=== PATIENT | male | born 1975 | race Caucasian/White ===

== ENCOUNTER 2018-01-25 13:49 | Inpatient (IN) | payer OTHER ==
[~2018-01-25] VITALS: Ht 175.3 cm; Wt 96.6 kg
[2018-01-25 13:55] VITALS: BP 150/102
[2018-01-25 14:29] LABS: HEMATOCRIT 44.1 % (42.0-52.0); HEMOGLOBIN 14.7 gm/dL (14.0-18.0); MCH 27.6 pg (26.0-34.0); MCHC 33.5 g/dL (28.0-37.0); MCV 82.5 fL (80.0-100.0); MPV 7.3 fl. (7.2-11.1); NUCLEATED RBCS 0 /100WBC; PLATELET COUNT* 357 thou/uL (150-400); RBC 5.34 mil/uL (4.50-6.00); RDW-CV 13.6 % (10.5-14.5); WBC 6.2 thou/uL (4.0-11.0)
[2018-01-25 14:39] LABS: CREATININE 1.2 mg/dL (0.6-1.3); POTASSIUM 4.4 mmol/L (3.5-5.1)
[2018-01-25 14:43] LABS: ALBUMIN 3.8 g/dL (3.4-5.0); TOTAL BILIRUBIN 2.1 mg/dL (<0.1-1.0)
[2018-01-25 14:51] LABS: ABSOLUTE LYMPHOCYTES 1.4 thou/uL (0.8-5.3); ABSOLUTE MONOCYTES 1.2 thou/uL (0.0-1.2); ABSOLUTE NEUTROPHILS 3.5 thou/uL (1.6-8.1); PLATELET ESTIMATE ADEQUATE
[2018-01-25 15:03] LABS: URINE BLOOD NEGATIVE (Negative); URINE CLARITY CLEAR; URINE COLOR YELLOW; URINE GLUCOSE-RANDOM NEGATIVE (Negative); URINE KETONES 1+ (Negative); URINE LEUKOCYTES NEGATIVE (Negative); URINE NITRITE NEGATIVE (Negative); URINE PROTEIN NEGATIVE (Negative); URINE SPECIFIC GRAVITY >= 1.030 (1.005-1.030); URINE UROBILINOGEN 0.2 E.U./dl (0.2-1.0)
[2018-01-25 15:08] LABS: ICTOTEST (BILI CONFIRMATORY) Negative (Negative); URINE BILIRUBIN 1+ (Negative)
[2018-01-25 21:09] VITALS: BP 130/80
[2018-01-25 21:14] VITALS: BP 138/78
[2018-01-26 03:59] LABS: ABSOLUTE BASOPHILS 0.1 thou/uL (0.0-0.2); ABSOLUTE EOSINOPHILS 0.3 thou/uL (0.0-0.7); ABSOLUTE MONOCYTES 1.1 thou/uL (0.0-1.2); ABSOLUTE NEUTROPHILS 2.7 thou/uL (1.6-8.1); BASOPHILS 0.8 %; EOSINOPHILS 4.3 %; HEMATOCRIT 38.8 % (42.0-52.0); HEMOGLOBIN 12.9 gm/dL (14.0-18.0); LYMPHOCYTES 32.2 %; MCH 28.1 pg (26.0-34.0); MCHC 33.4 g/dL (28.0-37.0); MCV 84.1 fL (80.0-100.0); MONOCYTES 18.7 %; MPV 7.4 fl. (7.2-11.1); NUCLEATED RBCS 0 /100WBC; RBC 4.61 mil/uL (4.50-6.00); RDW-CV 13.6 % (10.5-14.5); WBC 6.1 thou/uL (4.0-11.0)
[2018-01-26 04:31] LABS: CALCIUM 8.4 mg/dL (8.5-10.1); CREATININE 1.2 mg/dL (0.6-1.3); MAGNESIUM 2.3 mg/dL (1.8-2.4); POTASSIUM 4.1 mmol/L (3.5-5.1)
[2018-01-26 04:38] LABS: PLATELET COUNT* 272 thou/uL (150-400)
[2018-01-26 08:05] VITALS: BP 131/80
[2018-01-26 20:30] VITALS: BP 129/79
[2018-01-26 21:00] VITALS: BP 139/96
[2018-01-27 03:56] LABS: HEMATOCRIT 37.6 % (42.0-52.0); HEMOGLOBIN 12.5 gm/dL (14.0-18.0); MCH 27.8 pg (26.0-34.0); MCHC 33.3 g/dL (28.0-37.0); MCV 83.4 fL (80.0-100.0); MPV 7.4 fl. (7.2-11.1); RBC 4.51 mil/uL (4.50-6.00); RDW-CV 13.5 % (10.5-14.5); WBC 6.5 thou/uL (4.0-11.0)
[2018-01-27 04:33] LABS: CALCIUM 8.4 mg/dL (8.5-10.1); MAGNESIUM 1.8 mg/dL (1.8-2.4); PHOSPHORUS* 3.9 mg/dL (2.5-4.9); POTASSIUM 4.1 mmol/L (3.5-5.1)
[2018-01-27 08:00] VITALS: BP 134/79
[2018-01-27 16:31] VITALS: BP 158/89
[2018-01-28 03:30] LABS: HEMATOCRIT 37.2 % (42.0-52.0); HEMOGLOBIN 12.6 gm/dL (14.0-18.0); MCH 27.9 pg (26.0-34.0); MCHC 33.8 g/dL (28.0-37.0); MCV 82.6 fL (80.0-100.0); MPV 7.5 fl. (7.2-11.1); RBC 4.51 mil/uL (4.50-6.00); RDW-CV 13.2 % (10.5-14.5); WBC 8.1 thou/uL (4.0-11.0)
[2018-01-28 04:06] LABS: CALCIUM 8.5 mg/dL (8.5-10.1); CREATININE 0.9 mg/dL (0.6-1.3); MAGNESIUM 1.8 mg/dL (1.8-2.4); PHOSPHORUS* 3.5 mg/dL (2.5-4.9)
[2018-01-28 07:40] VITALS: BP 126/81
[2018-01-28 20:00] VITALS: BP 148/95
[2018-01-29 08:00] VITALS: BP 143/95
[2018-01-29] MEDS ORDERED: COLACE 100 MG100 MG PO (14:46)
[2018-01-29 14:47] VITALS: BP 143/95
== END 2018-01-29 15:07 | disposition home or self-care (01) | DRG 389 ==
LOC: M.ERS 13:49 → M.ORTHSURG 16:43 → M.TBA-ER 16:43 → M.ORTHSURG 20:34
PROVIDERS: Physician Assistant; ADMIT Surgery
DX: K56.690 Other partial intestinal obstruction (principal); J98.11 Atelectasis; E87.1 Hypo-osmolality and hyponatremia; K59.00 Constipation, unspecified; Z90.49 Acquired absence of other specified parts of digestive tract